=== PATIENT | male | born 1950 | race Two or more races ===

== ENCOUNTER 2023-03-09 16:36 | Inpatient (IN) | payer OTHER ==
[~2023-03-09] VITALS: Ht 172.7 cm; Wt 81.6 kg
[2023-03-09] MEDS ORDERED: SYNTHROID50 MCG (17:46)
[2023-03-09] MEDS ORDERED: CARVEDILOL6.25 MG (17:46)
[2023-03-09] MEDS ORDERED: COZAAR50 MG (17:47)
[2023-03-09] MEDS ORDERED: COZAAR100 MG (17:47)
[2023-03-09] MEDS ORDERED: ALDACTONE25 MG (17:47)
[2023-03-09] MEDS ORDERED: LIPITOR20 MG (17:47)
[2023-03-09] MEDS ORDERED: LASIX40 MG (17:47)
[2023-03-09] MEDS ORDERED: GLIMEPIRIDE2 MG (17:47)
[2023-03-09] MEDS ORDERED: FENOFIBRATE40 MG (17:48)
[2023-03-09] MEDS ORDERED: CARDURA XL4 MG (17:48)
[2023-03-09 19:50] LABS: HEMATOCRIT 39.6 % (39.0-48.0); HEMOGLOBIN 13.5 g/dL (13-16.00); MEAN CELL VOLUME 92.4 fL (80.0-100.00); MEAN CORPUSCULAR HEMOGLOBIN 31.6 pg (27.00-32.0); MEAN CORPUSCULAR HGB CONC 34.1 g/dl (32.0-36.0); PLATELET COUNT 141 K/uL (150-450); RED BLOOD COUNT 4.29 M/uL (4.00-6.00); RED CELL DISTRIBUTION WIDTH 15.7 % (11.5-14.5)
[2023-03-09 19:54] LABS: ERYTHROCYTE SEDIMENTATION RATE 58 mm/hr
[2023-03-09 20:20] LABS: ALBUMIN 2.7 gm/dL (3.4-5.0); BILIRUBIN TOTAL 0.47 mg/dL (0.3-1.2); CALCIUM 9.8 mg/dL (8.5-10.1); CREATININE SERUM 0.82 mg/dL (0.70-1.30); GFR 92.35; POTASSIUM 3.52 mEq/L (3.5-5.1); TOTAL PROTEIN 6.7 gm/dL (6.4-8.2)
[2023-03-09 20:25] LABS: C-REACTIVE PROTEIN 8.97 MG/DL (0.00-0.29)
[2023-03-10 02:19] LABS: CKMB 2.4 NG/ML (0.5-3.6)
[2023-03-10 06:55] LABS: HEMATOCRIT 37.5 % (39.0-48.0); HEMOGLOBIN 12.3 g/dL (13-16.00); MEAN CELL VOLUME 92.9 fL (80.0-100.00); MEAN CORPUSCULAR HEMOGLOBIN 30.6 pg (27.00-32.0); MEAN CORPUSCULAR HGB CONC 32.9 g/dl (32.0-36.0); RED BLOOD COUNT 4.03 M/uL (4.00-6.00); RED CELL DISTRIBUTION WIDTH 15.5 % (11.5-14.5)
[2023-03-10 07:30] LABS: INR 0.95; PARTIAL THROMBOPLASTIN TIME 31.4 SECONDS (22.0-34.0)
[2023-03-10 07:49] LABS: ALBUMIN 2.4 gm/dL (3.4-5.0); BILIRUBIN TOTAL 0.34 mg/dL (0.3-1.2); BILIRUBIN,CONJUGATED 0.12 mg/dL (0.0-0.2); BILIRUBIN,UNCONJUGATED 0.22 mg/dL (0.0-0.6); CALCIUM 8.9 mg/dL (8.5-10.1); CHOL HDL RATIO 2.4 (0-5.0); CREATININE SERUM 0.62 mg/dL (0.70-1.30); GFR 127.52; GLOBULINA 2.8 G/DL (2.4-3.5); POTASSIUM 3.57 mEq/L (3.5-5.1); TOTAL PROTEIN 5.2 gm/dL (6.4-8.2)
[2023-03-10 07:57] LABS: C-REACTIVE PROTEIN 8.16 MG/DL (0.00-0.29)
[2023-03-10 08:53] LABS: ERYTHROCYTE SEDIMENTATION RATE 42 mm/hr
[2023-03-10 09:19] LABS: PLATELET COUNT 125 K/uL (150-450)
[2023-03-10 11:49] LABS: PH,URINE 7.5 (5.0-8.0); URINE APPEARANCE Clear; URINE BILIRRUBIN Negative (NEGATIVE); URINE BLOOD Negative; URINE COLOR Yellow; URINE LEUKOCYTE Negative; URINE NITRATE Negative; URINE PROTEIN 30 (NEGATIVE)
[2023-03-10 11:53] LABS: URINE RBC 2.8 uL (0.0-20.8)
[2023-03-10 12:24] LABS: URINE EPITHELIAL CELLS 0.9 uL (0.0-38.8); URINE GLUCOSE >=1000 MG/DL (NEGATIVE); URINE WBC 0.9 uL (0.0-23.2)
[2023-03-10 13:30] LABS: CKMB 2.4 NG/ML (0.5-3.6)
[2023-03-10 17:29] LABS: D DIMER 0.37 MG/L
[2023-03-12 06:25] LABS: HEMATOCRIT 36.3 % (39.0-48.0); HEMOGLOBIN 12.2 g/dL (13-16.00); MEAN CELL VOLUME 92.9 fL (80.0-100.00); MEAN CORPUSCULAR HEMOGLOBIN 31.3 pg (27.00-32.0); MEAN CORPUSCULAR HGB CONC 33.7 g/dl (32.0-36.0); PLATELET COUNT 135 K/uL (150-450); RED BLOOD COUNT 3.91 M/uL (4.00-6.00); RED CELL DISTRIBUTION WIDTH 15.4 % (11.5-14.5)
[2023-03-12 06:50] LABS: CALCIUM 8.8 mg/dL (8.5-10.1); CREATININE SERUM 0.57 mg/dL (0.70-1.30); GFR 140.51; MAGNESIUM 2.1 mg/dL (1.8-2.4); POTASSIUM 4.23 mEq/L (3.5-5.1)
[2023-03-12 07:01] LABS: C-REACTIVE PROTEIN 4.51 MG/DL (0.00-0.29)
[2023-03-12 07:13] LABS: ERYTHROCYTE SEDIMENTATION RATE 26 mm/hr
[2023-03-14 05:18] LABS: ALBUMIN 2.2 gm/dL (3.4-5.0); BILIRUBIN TOTAL 0.38 mg/dL (0.3-1.2); CALCIUM 8.4 mg/dL (8.5-10.1); CREATININE SERUM 0.54 mg/dL (0.70-1.30); GFR 149.56; GLOBULINA 2.8 G/DL (2.4-3.5); MAGNESIUM 2.4 mg/dL (1.8-2.4); PHOSPHOROUS 2.1 mg/dL (2.5-4.9); POTASSIUM 3.49 mEq/L (3.5-5.1)
[2023-03-14 05:33] LABS: HEMATOCRIT 35.7 % (39.0-48.0); HEMOGLOBIN 12.2 g/dL (13-16.00); MEAN CELL VOLUME 91.4 fL (80.0-100.00); MEAN CORPUSCULAR HEMOGLOBIN 31.2 pg (27.00-32.0); MEAN CORPUSCULAR HGB CONC 34.2 g/dl (32.0-36.0); PLATELET COUNT 138 K/uL (150-450)
[2023-03-15 06:52] LABS: CALCIUM 8.9 mg/dL (8.5-10.1); CREATININE SERUM 0.68 mg/dL (0.70-1.30); GFR 114.63; PHOSPHOROUS 2.4 mg/dL (2.5-4.9); POTASSIUM 3.94 mEq/L (3.5-5.1)
[2023-03-16 06:26] LABS: HEMATOCRIT 36.3 % (39.0-48.0); HEMOGLOBIN 12.3 g/dL (13-16.00); MEAN CELL VOLUME 90.6 fL (80.0-100.00); MEAN CORPUSCULAR HEMOGLOBIN 30.6 pg (27.00-32.0); MEAN CORPUSCULAR HGB CONC 33.8 g/dl (32.0-36.0); PLATELET COUNT 146 K/uL (150-450); RED BLOOD COUNT 4.01 M/uL (4.00-6.00); RED CELL DISTRIBUTION WIDTH 15.2 % (11.5-14.5)
[2023-03-16 07:04] LABS: ALBUMIN 2.3 gm/dL (3.4-5.0); BILIRUBIN TOTAL 0.52 mg/dL (0.3-1.2); CALCIUM 8.7 mg/dL (8.5-10.1); CREATININE SERUM 0.68 mg/dL (0.70-1.30); GFR 114.63; GLOBULINA 2.9 G/DL (2.4-3.5); POTASSIUM 3.8 mEq/L (3.5-5.1); TOTAL PROTEIN 5.2 gm/dL (6.4-8.2)
[2023-03-16 07:06] LABS: C-REACTIVE PROTEIN 0.44 MG/DL (0.00-0.29)
[2023-03-16] MEDS ORDERED: INTEGRA PLUS C1 EACH PO (18:30)
[2023-03-16] MEDS ORDERED: Procardia Xl 30MG TA PO (18:31)
[2023-03-16] MEDS ORDERED: CARVEDILOL6.25 MG PO (18:31)
[2023-03-16] MEDS ORDERED: LIPITOR20 MG PO (18:31)
[2023-03-16] MEDS ORDERED: DOXAZOSIN MESYLA8 MG PO (18:31)
[2023-03-16] MEDS ORDERED: LOSARTAN POTAS100 MG PO (18:31)
[2023-03-16] MEDS ORDERED: FUROSEMIDE20 MG PO (18:32)
[2023-03-16] MEDS ORDERED: SPIRONOLACTONE25 MG PO (18:32)
[2023-03-16] MEDS ORDERED: LEVOTHYROXINE50 MCG PO (18:32)
[2023-03-16] MEDS ORDERED: PRE PROTEIN1 EACH PO (18:32)
[2023-03-16] MEDS ORDERED: LEVOFLOXACIN750 MG PO (18:33)
[2023-03-16] MEDS ORDERED: MONDOXYNE NL100 MG PO (18:34)
== END 2023-03-16 19:04 | disposition home or self-care (01) | DRG 603 ==
LOC: ER 16:36 → MEDJ 23:17 → MEDI 03-10 11:48 → MEDJ 03-12 10:42
PROVIDERS: General Practice; Internal Medicine; ADMIT Internal Medicine; ATTEND Internal Medicine
PROC: B54DZZZ Ultrasonography of Bilateral Lower Extremity Veins (ICD-10-PCS; principal; 2023-03-09)
PROC: 02HV33Z Insertion of Infusion Device into Superior Vena Cava, Percutaneous Approach (ICD-10-PCS; 2023-03-10)
PROC: B24BZZZ Ultrasonography of Heart with Aorta (ICD-10-PCS; 2023-03-12)
DX: L03.115 Cellulitis of right lower limb (principal); I50.20 Unspecified systolic (congestive) heart failure; E03.9 Hypothyroidism, unspecified; E78.5 Hyperlipidemia, unspecified; E11.65 Type 2 diabetes mellitus with hyperglycemia; Z79.4 Long term (current) use of insulin; Z20.822 Contact with and (suspected) exposure to COVID-19; I25.10 Atherosclerotic heart disease of native coronary artery without angina pectoris; I11.0 Hypertensive heart disease with heart failure

== ENCOUNTER 2023-06-13 22:43 | Emergency (ER) | payer OTHER ==
[~2023-06-13] VITALS: Ht 172.7 cm; Wt 83.0 kg
[~2023-06-13 22:43] MED LIST: ALDACTONE25 MG; CARDURA XL4 MG; CARVEDILOL6.25 MG; CARVEDILOL6.25 MG PO; COZAAR100 MG; COZAAR50 MG; DOXAZOSIN MESYLA8 MG PO; FENOFIBRATE40 MG; FUROSEMIDE20 MG PO; GLIMEPIRIDE2 MG; INTEGRA PLUS C1 EACH PO; LASIX40 MG; LEVOFLOXACIN750 MG PO; LEVOTHYROXINE50 MCG PO; LIPITOR20 MG; LIPITOR20 MG PO; LOSARTAN POTAS100 MG PO; MONDOXYNE NL100 MG PO; PRE PROTEIN1 EACH PO; Procardia Xl 30MG TA PO; SPIRONOLACTONE25 MG PO; SYNTHROID50 MCG
[2023-06-13] MEDS ORDERED: ALDACTONE50 MG PO (22:49)
[2023-06-13] MEDS ORDERED: KETOCONAZOLE (22:50)
[2023-06-14 01:45] LABS: URINE APPEARANCE Clear; URINE BILIRRUBIN Negative (NEGATIVE); URINE BLOOD Negative; URINE COLOR Yellow; URINE LEUKOCYTE Negative; URINE NITRATE Negative; URINE PROTEIN Trace (NEGATIVE); URINE UROBILINOGEN 0.2 E.U./dl
[2023-06-14 01:49] LABS: URINE BACTERIA 47.7 uL (0.0-1933); URINE RBC 10.3 uL (0.0-20.8); URINE WBC 11.2 uL (0.0-23.2)
[2023-06-14 01:54] LABS: HEMATOCRIT 38.2 % (39.0-48.0); HEMOGLOBIN 12.8 g/dL (13-16.00); MEAN CELL VOLUME 93.3 fL (80.0-100.00); MEAN CORPUSCULAR HEMOGLOBIN 31.2 pg (27.00-32.0); MEAN CORPUSCULAR HGB CONC 33.4 g/dl (32.0-36.0); PLATELET COUNT 149 K/uL (150-450); RED CELL DISTRIBUTION WIDTH 15.5 % (11.5-14.5)
[2023-06-14 01:59] LABS: INR 0.98; PARTIAL THROMBOPLASTIN TIME 24.5 SECONDS (22.0-34.0); PROTHROMBIN TIME 10.3 SECONDS (9.0-11.5)
[2023-06-14 01:59] LABS: URINE EPITHELIAL CELLS 0.4 uL (0.0-38.8); URINE GLUCOSE >=1000 MG/DL (NEGATIVE)
[2023-06-14 03:15] LABS: ALBUMIN 2.9 gm/dL (3.4-5.0); BILIRUBIN TOTAL 0.51 mg/dL (0.3-1.2); CALCIUM 9.5 mg/dL (8.5-10.1); CREATININE SERUM 0.86 mg/dL (0.70-1.30); GFR 87.17; GLOBULINA 3.2 G/DL (2.4-3.5); POTASSIUM 3.55 mEq/L (3.5-5.1); TOTAL PROTEIN 6.1 gm/dL (6.4-8.2)
== END 2023-06-14 09:15 | disposition home or self-care (01) ==
LOC: ER 22:44
PROVIDERS: General Practice
DX: S40.021A Contusion of right upper arm, initial encounter (principal); I10 Essential (primary) hypertension; E24.8 Other Cushing's syndrome
CPT/HCPCS: 36415; 70450; 71046; 73060; 96365; 99284; J1940

== ENCOUNTER 2023-06-14 11:05 | Outpatient (CLI) | payer OTHER ==
[~2023-06-14 11:05] MED LIST changes: +ALDACTONE50 MG PO; +KETOCONAZOLE
== END 2023-06-14 11:06 | disposition home or self-care (01) ==
LOC: NUCLEAR 11:05
PROVIDERS: ATTEND Internal Medicine
DX: I82.621 Acute embolism and thrombosis of deep veins of right upper extremity (principal)

== ENCOUNTER 2023-12-31 11:16 | Emergency (ER) | payer OTHER ==
[2023-12-31] MEDS ORDERED: 0.9 % SODIUM CHLORIDE 1,000 ML IV ONE (12:30)
[2023-12-31] MEDS ORDERED: FAMOtidine 10 MG/ML (4ML VIAL) IV ONE (12:30)
[2023-12-31 12:50] LABS: HEMATOCRIT 34.2 % (39.0-48.0); HEMOGLOBIN 11.5 g/dL (13-16.00); MEAN CELL VOLUME 87.5 fL (80.0-100.00); MEAN CORPUSCULAR HEMOGLOBIN 29.4 pg (27.00-32.0); MEAN CORPUSCULAR HGB CONC 33.6 g/dl (32.0-36.0); PLATELET COUNT 186 K/uL (150-450); RED BLOOD COUNT 3.91 M/uL (4.00-6.00); RED CELL DISTRIBUTION WIDTH 17.8 % (11.5-14.5)
[2023-12-31 13:09] LABS: ERYTHROCYTE SEDIMENTATION RATE 85 mm/hr
[2023-12-31 13:19] LABS: ALBUMIN 2.4 gm/dL (3.4-5.0); BILIRUBIN TOTAL 1.12 mg/dL (0.3-1.2); CALCIUM 9.5 mg/dL (8.5-10.1); CREATININE SERUM 0.74 mg/dL (0.70-1.30); GFR 103.68; GLOBULINA 3.9 G/DL (2.4-3.5); POTASSIUM 3.96 mEq/L (3.5-5.1); TOTAL PROTEIN 6.3 gm/dL (6.4-8.2)
[2023-12-31 13:20] LABS: C-REACTIVE PROTEIN 12.2 MG/DL (0.00-0.29)
[2023-12-31 13:23] LABS: INR 1.01; PARTIAL THROMBOPLASTIN TIME 32.1 SECONDS (22.0-34.0)
[2023-12-31] MEDS ORDERED: FAMOTIDINE/PF 20 MG/2 ML VIAL ONE (13:31)
[2023-12-31 14:35] LABS: PH,URINE 5.5 (5.0-8.0); URINE APPEARANCE Clear; URINE BILIRRUBIN Negative (NEGATIVE); URINE BLOOD Trace; URINE COLOR Yellow; URINE KETONE 15 (NEGATIVE); URINE LEUKOCYTE Negative; URINE NITRATE Negative; URINE PROTEIN Trace (NEGATIVE); URINE UROBILINOGEN 0.2 E.U./dl
[2023-12-31 14:37] LABS: URINE BACTERIA 1215.8 uL (0.0-1933); URINE EPITHELIAL CELLS 11.7 uL (0.0-38.8); URINE RBC 16.4 uL (0.0-20.8); URINE WBC 32.9 uL (0.0-23.2)
[2023-12-31 14:39] LABS: URINE CAST 0.45 uL (0.0-1.40); URINE GLUCOSE >=1000 MG/DL (NEGATIVE)
[2023-12-31] MEDS ORDERED: TAMS0.4C PO (18:04)
== END 2023-12-31 19:44 | disposition home or self-care (01) ==
LOC: ER 11:16
PROVIDERS: General Practice
DX: R53.81 Other malaise (principal); I95.9 Hypotension, unspecified; R10.9 Unspecified abdominal pain; I10 Essential (primary) hypertension; E03.8 Other specified hypothyroidism; E11.9 Type 2 diabetes mellitus without complications
CPT/HCPCS: 36415; 71045; 74177; 93005; 96365; 99284; J3490; J7030; Q9965